=== PATIENT | female | born 1990 | race Two or more races ===

== ENCOUNTER 2017-05-17 13:42 | Emergency (ER) | payer OTHER ==
[~2017-05-17] VITALS: Ht 162.6 cm; Wt 63.5 kg
[~2017-05-17 13:42] MED LIST: IBUPROFEN600 MG ORAL; NKM; PREDNISONE20 MG ORAL; UNOBMED; ZANTAC150 MG ORAL; [UNRECOGNIZED DRUG - OTHER]
[2017-05-17] MEDS ORDERED: NKM (14:21)
[2017-05-17] MEDS ORDERED: Ketorolac 30mg Inj IV ONE (14:30)
[2017-05-17] MEDS ORDERED: Metoclopramide 10mg/2ml Inj IVP ONE (14:30)
[2017-05-17] MEDS ORDERED: DiphenhydrAMINE 50mg/ml Inj IVP ONE (14:30)
[2017-05-17 15:22] VITALS: BP 132/86
[2017-05-17 15:41] LABS: BASOPHILS % (AUTO) 0.6 % (0.0-2.0); EOSINOPHILS % (AUTO) 0.5 % (0.0-3.0); LYMPHOCYTES % (AUTO) 32.8 % (20.0-45.0); MEAN CORPUSCULAR HEMOGLOBIN 31.2 PG (27.0-31.0); MEAN CORPUSCULAR HGB CONC 33.8 G/DL (32.0-36.0); MEAN CORPUSCULAR VOLUME 92 FL (80-99); MEAN PLATELET VOLUME 6.9 FL (6.5-10.1); MONOCYTES % (AUTO) 5.3 % (1.0-10.0); NEUTROPHILS % (AUTO) 60.9 % (45.0-75.0); PLATELET COUNT 355 K/UL (150-450); RED BLOOD COUNT 4.73 M/UL (4.20-5.40); WHITE BLOOD COUNT 12.2 K/UL (4.8-10.8)
[2017-05-17 15:52] LABS: APPEARANCE,URINE CLEAR; KETONES,URINE NEGATIVE (NEGATIVE); LEUKOCYTE ESTERASE ,URINE 1+ (NEGATIVE); NITRITE,URINE NEGATIVE (NEGATIVE); PH,URINE 6 (4.5-8.0); PROTEIN,URINE NEGATIVE (NEGATIVE); UROBILINOGEN,URINE NORMAL MG/DL (0.0-1.0)
[2017-05-17 15:57] LABS: ALANINE AMINOTRANSFERASE 17 U/L (3-33); ALBUMIN/GLOBULIN RATIO 1.6 (1.0-2.7); ANION GAP 13 (5-15); ASPARTATE AMINO TRANSFERASE 20 U/L (5-40); CALCIUM 9.4 mg/dL (8.6-10.2); CARBON DIOXIDE 28 mEQ/L (20-30); CHLORIDE 98 mEQ/L (98-107); CREATININE 0.6 mg/dL (0.5-0.9); GLOMERULAR FILTRATION RATE > 60 mL/min (>60); HEMOLYSIS 10; POTASSIUM 3.7 mEQ/L (3.4-4.9); SODIUM 139 mEQ/L (135-145); TOTAL PROTEIN 7.9 g/dL (6.6-8.7)
[2017-05-17 16:05] LABS: RBC,URINE 0-2 /HPF (0 - 2); SQUAMOUS EPITHELIAL CELL,UR FEW /LPF (NONE/OCC)
[2017-05-17 16:06] LABS: BACTERIA,URINE FEW /HPF
[2017-05-17] MEDS ORDERED: FIORICET1 EA ORAL (16:14)
[2017-05-17 16:20] VITALS: BP 132/86
--- NOTE | 2017-05-17 21:48 | Emergency Room Report ---
History of Present Illness General Chief Complaint: Headache Source: Patient Present Illness HPI 26-year-old female presents ED complaining of headache x2 weeks patient notes pain across her for head, throbbing, 9/10, nonradiating. Notes photophobia, denies blurry vision. Denies nausea or vomiting. Denies recent trauma. States she has taken [id number] medications without relief. Denies neck stiffness or fevers or chills. No other aggravating relieving factors. Denies any other associated symptoms Allergies: Coded Allergies: No Known Allergies (Unverified , 07/23/12) Patient History Past Medical History: none Past Surgical History: none Pertinent Family History: none Social History: Denies: alcohol use, drug use, smoking Last Menstrual Period: 2 weeks ago Now: No Immunizations: UTD Reviewed Nursing Documentation: PMH: Agreed, PSxH: Agreed Nursing Documentation-PMH Past Medical History: No Stated History Review of Systems All Other Systems: negative except mentioned in HPI Physical Exam Vital Signs Date Time Temp Pulse Resp B/P Pulse Ox O2 Delivery O2 Flow Rate FiO2 05/17/17 14:17 98.4 72 16 132/86 99 Room Air Sp02 EP Interpretation: reviewed, normal General Appearance: no apparent distress, alert, GCS 15, non-toxic Head: normocephalic, atraumatic Eyes: bilateral eye PERRL, bilateral eye normal inspection ENT: hearing grossly normal, normal pharynx, no angioedema, normal voice Neck: full range of motion, supple, no meningismus, supple/symm/no masses Respiratory: chest non-tender, lungs clear, normal breath sounds, speaking full sentences Cardiovascular #1: regular rate, rhythm, no edema Cardiovascular #2: 2+ carotid (R), 2+ carotid (L), 2+ radial (R), 2+ radial (L) , 2+ dorsalis pedis (R), 2+ dorsalis pedis (L) Gastrointestinal: normal bowel sounds, non tender, soft, non-distended, no guarding, no rebound Rectal: deferred Genitourinary: normal inspection, no CVA tenderness Musculoskeletal: back normal, gait/station normal, normal range of motion, non- tender Neurologic: alert, oriented x3, responsive, motor strength/tone normal, sensory intact, speech normal Psychiatric: judgement/insight normal, memory normal, mood/affect normal, no suicidal/homicidal ideation Reflexes: 3+ bicep (R), 3+ bicep (L), 3+ tricep (R), 3+ tricep (L), 3+ knee (R) , 3+ knee (L) Skin: normal color, no rash, warm/dry, well hydrated Lymphatic: no adenopathy Medical Decision Making Diagnostic Impression: Primary Impression: Headache Qualified Codes: R51 - Headache ER Course Hospital Course 26-year-old female presents to ED complaining of headaches, throbbing in nature x2 weeks Differential diagnoses include: tension headache, migraine, dehydration, intracranial bleed Clinical course Patient placed on stretcher. After initial history and physical I ordered labs , IV fluids, Reglan, Toradol and Benadryl. Labs reviewed- electrolytes okay, minimal leukocytosis, hemoglobin/hematocrit stable Upon reassessment patient states pain has improved. Patient feels better wishes to go home. Given the lack of fever, nuchal rigidity or neurological findings my suspicion for intracranial pathology is low patient be safely discharged to home. i. I feel this is a highly complex case requiring extensive working including EKG/Rhythm strip, Xray/CT/US, Blood/urine lab work, repeat exams while in ED, and administration of strong opiates/narcotics for pain control, admission to hospital or close patient follow up. Diagnosis - headache stable and discharged to home with Rx Fioricet. f/up with PMD. return to ED if symptoms recur/worsen. Labs Test 05/17/17 15:20 White Blood Count 12.2 K/UL (4.8-10.8) Red Blood Count 4.73 M/UL (4.20-5.40) Hemoglobin 14.8 G/DL (12.0-16.0) Hematocrit 43.7 % (37.0-47.0) Mean Corpuscular Volume 92 FL (80-99) Mean Corpuscular Hemoglobin 31.2 PG (27.0-31.0) Mean Corpuscular Hemoglobin Concent 33.8 G/DL (32.0-36.0) Red Cell Distribution Width 11.0 % (11.6-14.8) Platelet Count 355 K/UL (150-450) Mean Platelet Volume 6.9 FL (6.5-10.1) Neutrophils (%) (Auto) 60.9 % (45.0-75.0) Lymphocytes (%) (Auto) 32.8 % (20.0-45.0) Monocytes (%) (Auto) 5.3 % (1.0-10.0) Eosinophils (%) (Auto) 0.5 % (0.0-3.0) Basophils (%) (Auto) 0.6 % (0.0-2.0) Urine Color Pale yellow Urine Appearance Clear Urine pH 6 (4.5-8.0) Urine Specific [place] 1.015 (1.005-1.035) Urine Protein Negative (NEGATIVE) Urine Glucose (UA) Negative (NEGATIVE) Urine Ketones Negative (NEGATIVE) Urine Occult Blood Negative (NEGATIVE) Urine Nitrite Negative (NEGATIVE) Urine Bilirubin Negative (NEGATIVE) Urine Urobilinogen Normal MG/DL (0.0-1.0) Urine Leukocyte Esterase 1+ (NEGATIVE) Urine RBC 0-2 /HPF (0 - 2) Urine WBC 2-4 /HPF (0 - 2) Urine Squamous Epithelial Cells Few /LPF (NONE/OCC) Urine Bacteria Few /HPF (NONE) Urine HCG, Qualitative Negative Sodium Level 139 mEQ/L (135-145) Potassium Level 3.7 mEQ/L (3.4-4.9) Chloride Level 98 mEQ/L (98-107) Carbon Dioxide Level 28 mEQ/L (20-30) Anion Gap 13 (5-15) Blood Urea Nitrogen 7 mg/dL (7-23) Creatinine 0.6 mg/dL (0.5-0.9) Estimat Glomerular Filtration Rate > 60 mL/min (>60) Glucose Level 97 mg/dL (74-106) Calcium Level 9.4 mg/dL (8.6-10.2) Total Bilirubin 0.5 mg/dL (0.0-1.2) Aspartate Amino Transf (AST/SGOT) 20 U/L (5-40) Alanine Aminotransferase (ALT/SGPT) 17 U/L (3-33) Alkaline Phosphatase 72 U/L (35-104) Total Protein 7.9 g/dL (6.6-8.7) Albumin 4.9 g/dL (3.5-5.2) Globulin 3.0 g/dL Albumin/Globulin Ratio 1.6 (1.0-2.7) Last Vital Signs Date Time Temp Pulse Resp B/P Pulse Ox O2 Delivery O2 Flow Rate FiO2 05/17/17 16:20 98.4 68 16 132/86 99 Room Air Status: improved Disposition: HOME, SELF-CARE Condition: Stable Scripts Acetamin/Butalbital/Caffeine* (FIORICET*) 1 Ea Tab 1 TAB ORAL Q6H, #20 TAB 0 Refills Prov: PRANEETH FREEMAN M.D. 05/17/17 Referrals: [facility]ERR[facility] (PCP) Patient Instructions: Migraine Headache PRANEETH FREEMAN M.D. May 17, 2017 21:48
== END 2017-05-17 16:21 | disposition home or self-care (01) ==
LOC: EMR 14:46
DX: R51 Headache (principal)
CPT/HCPCS: 36415; 80053; 81003; 81025; 85025; 96374; 96375; 99284; J1200; J1885; J2765; J7040

== ENCOUNTER 2018-01-09 10:33 | Emergency (ER) | payer OTHER ==
[~2018-01-09] VITALS: Ht 162.6 cm; Wt 71.7 kg
[~2018-01-09 10:33] MED LIST changes: +FIORICET1 EA ORAL
[2018-01-09] MEDS ORDERED: Acetaminophen 500mg (ES) tab ORAL ONE (11:45)
[2018-01-09 12:25] LABS: APPEARANCE,URINE CLEAR; BILIRUBIN, URINE NEGATIVE (NEGATIVE); GLUCOSE, URINE (UA) 2+ (NEGATIVE); KETONES,URINE 1+ (NEGATIVE); LEUKOCYTE ESTERASE ,URINE 2+ (NEGATIVE); NITRITE,URINE NEGATIVE (NEGATIVE); PH,URINE 7 (4.5-8.0); PROTEIN,URINE NEGATIVE (NEGATIVE); UROBILINOGEN,URINE NORMAL MG/DL (0.0-1.0)
[2018-01-09 12:38] LABS: COLOR,URINE YELLOW
--- NOTE | 2018-01-09 15:26 | Diagnostic Imaging Report ---
Indication: Neck and back pain, fell down stairs 2 days ago, positive test Technique: Transabdominal and transvaginal images Comparison: 11/13/2012 Findings: Uterus measures 9.5 cm length by 5.2 cm AP. Within the endometrium, there is a gestational sac. This demonstrates a pole with a crown-rump length of 13 mm, corresponding to an estimated gestational age of 7 weeks 4 days. There is positive heart activity, heart rate 153 bpm. A yolk sac is demonstrated. Questionable minimal linear hypoechoic focus in the endometrium could represent a tiny subchorionic hemorrhage. There are uterine fundal fibroids measuring up to 4.1 cm in diameter. These are intramural. The left ovary measures 2.8 cm in length. The right ovary measures 3.6 cm in length. No adnexal mass. No free cul-de-sac fluid. There is a questionable small cervical nabothian cyst Impression: Positive for 7 week 4 day, by crown-rump length measurements, single live intrauterine Equivocal minimal subchorionic hemorrhage Multiple uterine fibroids Negative for adnexal mass
[2018-01-09 17:41] VITALS: BP 116/75
[2018-01-09 17:42] VITALS: BP 116/75
--- NOTE | 2018-01-14 23:27 | Emergency Room Report ---
History of Present Illness General Chief Complaint: Multiple Trauma/Fall Source: Patient Present Illness HPI Patient is a 27-year-old female who presented after increased neck pain after a fall. Patient reported having moderate pain. She denied any vaginal bleeding. Patient states that she is she denies any vaginal bleeding or leakage of fluid. She reported having some nausea. Patient denied severe headache Allergies: Coded Allergies: No Known Allergies (Unverified , 07/23/12) Patient History Past Medical History: see triage record Last Menstrual Period: 11/15/17 Reviewed Nursing Documentation: PMH: Agreed, PSxH: Agreed Nursing Documentation-PMH Past Medical History: No Stated History Review of Systems All Other Systems: negative except mentioned in HPI Physical Exam Vital Signs Date Time Temp Pulse Resp B/P (MAP) Pulse Ox O2 Delivery O2 Flow Rate FiO2 01/09/18 10:47 98.4 84 16 116/75 98 Room Air 98.4 General Appearance: well appearing, no apparent distress, alert, GCS 15, non- toxic Head: normocephalic, atraumatic ENT: hearing grossly normal, normal voice Neck: full range of motion, supple Respiratory: no respiratory distress, speaking full sentences Musculoskeletal: no calf tenderness Neurologic: normal gait Psychiatric: mood/affect normal Skin: no rash Medical Decision Making Diagnostic Impression: Primary Impression: Fall Additional Impression: Intrauterine ER Course Patient presented after a fall. Differential diagnosis included was not limited to fracture, abruption pelvic ultrasound was ordered due to patient's . The patient is advised to follow up with primary care doctor in 1- 2 days. Patient is advised to return if any worsening condition or if any changes in status that are concerning. This report is dictated with [employer] cosmetics presser software which may occasionally lead to discrepancies related to use of this software. Labs Test 01/09/18 11:55 Urine Color Yellow Urine Appearance Clear Urine pH 7 (4.5-8.0) Urine Specific [place] 1.010 (1.005-1.035) Urine Protein Negative (NEGATIVE) Urine Glucose (UA) 2+ (NEGATIVE) Urine Ketones 1+ (NEGATIVE) Urine Occult Blood Negative (NEGATIVE) Urine Nitrite Negative (NEGATIVE) Urine Bilirubin Negative (NEGATIVE) Urine Urobilinogen Normal MG/DL (0.0-1.0) Urine Leukocyte Esterase 2+ (NEGATIVE) Urine RBC 0-2 /HPF (0 - 2) Urine WBC 2-4 /HPF (0 - 2) Urine Squamous Epithelial Cells Moderate /LPF (NONE/OCC) Urine Bacteria Few /HPF (NONE) Urine HCG, Qualitative Positive Last Vital Signs Date Time Temp Pulse Resp B/P (MAP) Pulse Ox O2 Delivery O2 Flow Rate FiO2 01/09/18 17:42 99.0 89 16 116/75 98 Room Air 99.0 Status: improved Disposition: HOME, SELF-CARE Condition: Stable Patient Instructions: First Trimester of Shlomo García Jan 14, 2018 23:27
== END 2018-01-09 15:10 | disposition home or self-care (01) ==
LOC: EMR 11:40
DX: O26.891 Other specified pregnancy related conditions, first trimester (principal); M54.2 Cervicalgia; W19.XXXA Unspecified fall, initial encounter; Y92.9 Unspecified place or not applicable; O34.11 Maternal care for benign tumor of corpus uteri, first trimester; D25.9 Leiomyoma of uterus, unspecified; Z3A.01 Less than 8 weeks gestation of pregnancy
CPT/HCPCS: 76801; 81003; 81025; 99284

== ENCOUNTER 2019-04-15 11:03 | Emergency (ER) | payer OTHER ==
[~2019-04-15] VITALS: Ht 162.6 cm; Wt 69.4 kg
[2019-04-15 11:10] VITALS: BP 108/70
[2019-04-15] MEDS ORDERED: PRENATAL 19 TA1 EAC1 PO (11:10)
--- NOTE | 2019-04-15 11:10 | NUR ---
ED Nurse Note: pt walked in to ER c/o vaginal bleeding started this morning with abdominal pain 2/. pt aao x4 and ambulatory. skin clean and intact. per pt, she is 8 weeks .
--- NOTE | 2019-04-15 11:21 | Emergency Room Report ---
History of Present Illness General Chief Complaint: Complications Source: Patient Present Illness HPI Patient presents with light vaginal bleeding. It was more than just spotting. There was no clot material. That happened this morning. She's had some cramping 2-3/10 has been suprapubic. She denies any dysuria or fevers. The patient last period was February 22. She's had 2 miscarriages before. She has 2 children youngest 7 months and the oldest is 6 years old. The patient had an ultrasound last Tuesday. There is nothing abnormal that was seen. She does not know her blood type. No fevers, chills, chest pain, palpitations, nausea, vomiting, diarrhea, dysuria , shortness of breath, depression, visual changes, headache. Allergies: Coded Allergies: No Known Allergies (Unverified , 07/23/12) Patient History Past Medical History: see triage record Social History: Denies: smoking, alcohol use, drug use Social History Narrative at home Now: Yes : 6 Para: 2 Reviewed Nursing Documentation: PMH: Agreed; PSxH: Agreed Nursing Documentation-PMH Past Medical History: No Stated History Review of Systems All Other Systems: negative except mentioned in HPI Physical Exam Vital Signs Date Time Temp Pulse Resp B/P (MAP) Pulse Ox O2 Delivery O2 Flow Rate FiO2 04/15/19 11:05 97.9 78 16 108/70 (83) 99 Room Air Sp02 EP Interpretation: reviewed, normal General Appearance: well appearing, no apparent distress, GCS 15 Head: normocephalic Eyes: bilateral eye normal inspection, bilateral eye PERRL ENT: moist mucus membranes Neck: supple Respiratory: lungs clear, normal breath sounds Cardiovascular #1: regular rate, rhythm Cardiovascular #2: 2+ radial (R) Gastrointestinal: normal inspection, normal bowel sounds, non tender, no mass, non-distended Genitourinary: no CVA tenderness, deferred - For ultrasound Musculoskeletal: back normal, gait/station normal, normal range of motion Neurologic: alert, oriented x3, grossly normal Psychiatric: mood/affect normal Skin: normal inspection, warm/dry Medical Decision Making Diagnostic Impression: Primary Impression: Threatened miscarriage Additional Impression: 7 weeks gestation of ER Course Patient presents with vaginal bleeding and allegedly is 8 weeks . Differential includes ectopic, threatened miscarriage, bleeding in early , UTI amongst others. The patient will be evaluated with labs including blood type and Rh. The patient will be treated with Tylenol IV hydration. Pelvic ultrasound will be performed. Labs unremarkable. Pelvic ultrasound with 7-week IUP with heartbeat. Blood type O+. Patient reports no more bleeding. The pain is improved. Discussed findings with patient. Also discussed the need to follow-up with OB/ [employer]. Patient stable for outpatient observation and treatment. Laboratory Tests Test 04/15/19 11:45 White Blood Count 12.3 K/UL (4.8-10.8) H Red Blood Count 4.94 M/UL (4.20-5.40) Hemoglobin 14.5 G/DL (12.0-16.0) Hematocrit 42.1 % (37.0-47.0) Mean Corpuscular Volume 85 FL (80-99) Mean Corpuscular Hemoglobin 29.3 PG (27.0-31.0) Mean Corpuscular Hemoglobin Concent 34.5 G/DL (32.0-36.0) Red Cell Distribution Width 11.0 % (11.6-14.8) L Platelet Count 286 K/UL (150-450) Mean Platelet Volume 7.0 FL (6.5-10.1) Neutrophils (%) (Auto) 74.5 % (45.0-75.0) Lymphocytes (%) (Auto) 19.6 % (20.0-45.0) L Monocytes (%) (Auto) 5.2 % (1.0-10.0) Eosinophils (%) (Auto) 0.3 % (0.0-3.0) Basophils (%) (Auto) 0.4 % (0.0-2.0) Prothrombin Time 10.0 SEC (9.30-11.50) Prothrombin Time INR 0.9 (0.9-1.1) PTT 28 SEC (23-33) Urine Color Yellow Urine Appearance Clear Urine pH 6 (4.5-8.0) Urine Specific [place] 1.020 (1.005-1.035) Urine Protein Negative (NEGATIVE) Urine Glucose (UA) Negative (NEGATIVE) Urine Ketones 3+ (NEGATIVE) H Urine Blood 1+ (NEGATIVE) H Urine Nitrite Negative (NEGATIVE) Urine Bilirubin Negative (NEGATIVE) Urine Urobilinogen Normal MG/DL (0.0-1.0) Urine Leukocyte Esterase 1+ (NEGATIVE) H Urine RBC 0-2 /HPF (0 - 2) Urine WBC 0-2 /HPF (0 - 2) Urine Squamous Epithelial Cells Few /LPF (NONE/OCC) Urine Bacteria Few /HPF (NONE) Sodium Level 136 MMOL/L (136-145) Potassium Level 3.7 MMOL/L (3.5-5.1) Chloride Level 101 MMOL/L (98-107) Carbon Dioxide Level 26 MMOL/L (21-32) Anion Gap 9 mmol/L (5-15) Blood Urea Nitrogen 6 mg/dL (7-18) L Creatinine 0.5 MG/DL (0.55-1.30) L Estimate Glomerular Filtration Rate > 60 mL/min (>60) Glucose Level 105 MG/DL (74-106) Calcium Level 9.1 MG/DL (8.5-10.1) Total Bilirubin 0.3 MG/DL (0.2-1.0) Aspartate Amino Transferase (AST) 15 U/L (15-37) Alanine Aminotransferase (ALT) 18 U/L (12-78) Alkaline Phosphatase 81 U/L (46-116) Total Protein 7.9 G/DL (6.4-8.2) Albumin 3.8 G/DL (3.4-5.0) Globulin 4.1 g/dL Albumin/Globulin Ratio 0.9 (1.0-2.7) L Lipase 140 U/L (73-393) Human Chorionic Gonadotropin, Quant 84716 mIU/mL (1-6) H CT/MRI/US Diagnostic Results CT/MRI/US Diagnostic Results : Imaging Test Ordered: pelvic u/s Impression 7 week 6 days, + heart beat Last Vital Signs Date Time Temp Pulse Resp B/P (MAP) Pulse Ox O2 Delivery O2 Flow Rate FiO2 04/15/19 15:20 98.3 81 16 126/74 99 Room Air Status: improved Disposition: HOME, SELF-CARE Condition: Improved Scripts Promethazine Hcl* (PHENERGAN*) 25 Mg Tablet 25 MG ORAL Q8HR, #10 TAB 0 Refills Prov: Mynor Wagner MD 04/15/19 Mynor Wagner MD Apr 15, 2019 11:21
--- NOTE | 2019-04-15 11:30 | NUR ---
quick service technician was notified to call ob tech
[2019-04-15 12:03] LABS: APPEARANCE,URINE CLEAR; BILIRUBIN, URINE NEGATIVE (NEGATIVE); GLUCOSE, URINE (UA) NEGATIVE (NEGATIVE); KETONES,URINE 3+ (NEGATIVE); LEUKOCYTE ESTERASE ,URINE 1+ (NEGATIVE); NITRITE,URINE NEGATIVE (NEGATIVE); PH,URINE 6 (4.5-8.0); PROTEIN,URINE NEGATIVE (NEGATIVE); UROBILINOGEN,URINE NORMAL MG/DL (0.0-1.0)
[2019-04-15 12:05] LABS: BASOPHILS % (AUTO) 0.4 % (0.0-2.0); EOSINOPHILS % (AUTO) 0.3 % (0.0-3.0); HEMATOCRIT 42.1 % (37.0-47.0); HEMOGLOBIN 14.5 G/DL (12.0-16.0); LYMPHOCYTES % (AUTO) 19.6 % (20.0-45.0); MEAN CORPUSCULAR VOLUME 85 FL (80-99); MONOCYTES % (AUTO) 5.2 % (1.0-10.0); NEUTROPHILS % (AUTO) 74.5 % (45.0-75.0); PLATELET COUNT 286 K/UL (150-450); RED BLOOD COUNT 4.94 M/UL (4.20-5.40); WHITE BLOOD COUNT 12.3 K/UL (4.8-10.8)
[2019-04-15 12:08] LABS: COLOR,URINE YELLOW
[2019-04-15 12:09] LABS: INR 0.9 (0.9-1.1)
[2019-04-15 12:14] LABS: ANION GAP 9 mmol/L (5-15); BLOOD UREA NITROGEN 6 mg/dL (7-18); CALCIUM 9.1 MG/DL (8.5-10.1); CARBON DIOXIDE 26 MMOL/L (21-32); CHLORIDE 101 MMOL/L (98-107); CREATININE 0.5 MG/DL (0.55-1.30); POTASSIUM 3.7 MMOL/L (3.5-5.1); SODIUM 136 MMOL/L (136-145)
[2019-04-15 12:20] LABS: ALANINE AMINOTRANSFERASE 18 U/L (12-78); ALBUMIN 3.8 G/DL (3.4-5.0); ALBUMIN/GLOBULIN RATIO 0.9 (1.0-2.7); ALKALINE PHOSPHATASE 81 U/L (46-116); ASPARTATE AMINO TRANSFERASE 15 U/L (15-37); BILIRUBIN,TOTAL 0.3 MG/DL (0.2-1.0)
--- NOTE | 2019-04-15 12:46 | NUR ---
called radiology again to find out where is the client technical specialist
[2019-04-15 13:01] VITALS: BP 118/64
--- NOTE | 2019-04-15 13:23 | NUR ---
per rupa from radiology hvac tech called states the tech will be late
--- NOTE | 2019-04-15 14:32 | NUR ---
TO ULTRASOUND VIA [facility]
--- NOTE | 2019-04-15 14:50 | NUR ---
ED Nurse Note: US technitian arrived.
[2019-04-15] MEDS ORDERED: PHENERGAN25 M1 ORAL (15:12)
[2019-04-15 15:20] VITALS: BP 126/74
--- NOTE | 2019-04-15 15:24 | NUR ---
ER DISCHARGE NOTE: Patient is cleared to be discharged per ERMD after US, pt is aox4, on room air, with stable vital signs. pt was given dc and prescription instructions, pt was able to verbalize understanding, pt id band and iv site removed without complications. pt is able to ambulate with steady gait. pt took all belongings.
--- NOTE | 2019-04-15 18:19 | Diagnostic Imaging Report ---
EXAM: US OB first trimester CLINICAL HISTORY: vaginal bleeding TECHNIQUE: Real-time transabdominal ultrasound of the gravid uterus and pelvis with image documentation. COMPARISON: 01/09/18 OB ultrasound FINDINGS: Uterus/cervix: Unremarkable. Normal endometrial stripe thickness. No myometrial mass. Right ovary: Unremarkable. No mass. Normal blood flow. Left ovary: Unremarkable. No mass. Normal blood flow. Free fluid: No subchronic hemorrhage is seen. No significant pelvic free fluid. No adnexal masses seen. Bladder: Unremarkable as visualized. Wall is normal thickness for degree of distention. Other findings: Single live intrauterine gestation with a crown-rump length of 1.5 cm, corresponding to a gestational age of 7 weeks and 6 days is noted. cardiac motion is documented on a cine loop but M- mode Doppler quantification of heart rate is not documented currently. A yolk sac is identified. Within the gestational cavity is a curvilinear echogenic structure suggestive of an amniotic band. IMPRESSION: Single live intrauterine gestation with a sonographic gestational age of 7 weeks and 6 days. There is an intrauterine curvilinear echogenic structure suggestive of a possible amniotic band. Recommend reevaluation on follow-up..
== END 2019-04-15 15:20 | disposition home or self-care (01) ==
LOC: EMR 11:32
DX: O20.0 Threatened abortion (principal); Z3A.01 Less than 8 weeks gestation of pregnancy
CPT/HCPCS: 36415; 76856; 80053; 81003; 83690; 84702; 85025; 85610; 85730; 86900; 86901; 96360; 99284

== ENCOUNTER 2019-12-20 15:54 | Emergency (ER) | payer MEDICAID ==
[~2019-12-20] VITALS: Ht 162.6 cm; Wt 70.3 kg
[~2019-12-20 15:54] MED LIST changes: +PHENERGAN25 M1 ORAL; +PRENATAL 19 TA1 EAC1 PO
[2019-12-20 16:13] VITALS: BP 113/79
--- NOTE | 2019-12-20 16:27 | NUR ---
ED Nurse Note: Pt. aaox4. ambulatory pt sated she has pain in the left breast x 3days ; reports no redness, swelling or nipple discharge, but patient had fever 102F and chills. Reports no flu-like symptoms. +breasfeeding; delivered 4 weeks ago.
--- NOTE | 2019-12-20 16:47 | Emergency Room Report ---
History of Present Illness General Chief Complaint: Pain Source: Patient Present Illness HPI 29-year-old female presents to the emergency department complaining of progressive 10/10 in severity pain, tenderness and pain with breast-feeding in the left breast progressive x2 days. Patient also reports having a fever on Tuesday of 102. Patient states she has been taking IBU once a day. Pt. denies MERIDA, CP, SOB, Dizziness. She denies nipple d/c. She denies palpable masses. Pt. reports she has appt with her OBGYN on Tuesday. Allergies: Coded Allergies: No Known Allergies (Unverified , 07/23/12) Patient History Past Medical History: see triage record Past Surgical History: none Pertinent Family History: none Now: No Para: 3 Reviewed Nursing Documentation: PMH: Agreed; PSxH: Agreed Nursing Documentation-PMH Past Medical History: No Stated History Review of Systems All Other Systems: negative except mentioned in HPI Physical Exam Vital Signs Date Time Temp Pulse Resp B/P (MAP) Pulse Ox O2 Delivery O2 Flow Rate FiO2 12/20/19 16:13 98.8 87 18 113/79 97 Room Air Sp02 EP Interpretation: reviewed, normal General Appearance: no apparent distress, alert, GCS 15, non-toxic Head: normocephalic, atraumatic Eyes: bilateral eye normal inspection, bilateral eye PERRL ENT: hearing grossly normal, normal voice Neck: full range of motion Respiratory: lungs clear, normal breath sounds, speaking full sentences, other - TTP to the bottom of the left breast, erythema, and warmth noted. no nipple d/ c. no palpable abscess. Cardiovascular #1: regular rate, rhythm Musculoskeletal: back normal, normal range of motion, gait/station normal Neurologic: alert, motor strength/tone normal, oriented x3, sensory intact, responsive, speech normal Psychiatric: judgement/insight normal Skin: other - TTP to the bottom of the left breast, erythema, and warmth noted. no nipple d/c. no palpable abscess. Medical Decision Making PA Attestation Dr. Almendarez Is my supervising Physician whom patient management has been discussed with. Diagnostic Impression: Primary Impression: Mastitis ER Course 29-year-old female presents to the emergency department complaining of progressive 10/10 in severity pain, tenderness and pain with breast-feeding in the left breast progressive x2 days. Patient also reports having a fever on Tuesday of 102. Patient states she has been taking IBU once a day. Pt. denies MERIDA, CP, SOB, Dizziness. She denies nipple d/c. She denies palpable masses. Pt. reports she has appt with her OBGYN on Tuesday. Ddx considered but are not limited to cellulitis, abscess, mastitis, shingles, malignancy just to name a few. Vital signs: are WNL, pt. is afebrile H&PE are most consistent with mastitis secondary to breast-feeding no evidence of systemic infection at this time ORDERS: none required at this time, the diagnosis is clinical ED INTERVENTIONS: None required at this time. DISCHARGE: At this time pt. is stable for d/c to home. Will provide printed patient care instructions, and any necessary prescriptions. Care plan and follow up instructions have been discussed with the patient prior to discharge. Last Vital Signs Date Time Temp Pulse Resp B/P (MAP) Pulse Ox O2 Delivery O2 Flow Rate FiO2 12/20/19 16:13 98.8 82 18 113/79 (90) 97 Room Air Status: improved Disposition: HOME, SELF-CARE Condition: Stable Scripts Ibuprofen* (MOTRIN*) 600 Mg Tablet 600 MG ORAL THREE TIMES A DAY, #30 TAB 0 Refills Prov: Suzan Weir 12/20/19 Cephalexin* (KEFLEX*) 500 Mg Capsule 500 MG ORAL EVERY 12 HOURS for 7 Days, #14 CAP 0 Refills Prov: Suzan Weir 12/20/19 Patient Instructions: and Mastitis, Mastitis, [id number] Additional Instructions: Take medications as directed. Follow up with a Primary Care Provider or OBGYN in 3-5 days, even if your symptoms have resolved. Return sooner to ED if new symptoms occur, or current symptoms become worse. - Please note that this Emergency Department Report was dictated using [employer] wood stair builder technology software, occasionally this can lead to erroneous entry secondary to interpretation by the dictation equipment. Suzan Weir Dec 20, 2019 16:47
[2019-12-20] MEDS ORDERED: IBUPROFEN600 MG ORAL ×3 (16:51→16:59)
[2019-12-20] MEDS ORDERED: CEPHALEXIN500 MG ORAL ×3 (16:51→16:59)
[2019-12-20 16:55] VITALS: BP 124/75
--- NOTE | 2019-12-20 16:55 | NUR ---
ER DISCHARGE NOTE: Patient is cleared to be discharged per PA, pt is aox4, on room air, with stable vital signs. pt was given dc and prescription instructions, pt was able to verbalize understanding, pt id band removed. pt is able to ambulate with steady gait. pt took all belongings.
== END 2019-12-20 16:55 | disposition home or self-care (01) ==
LOC: EMR 16:55
DX: N61.0 Mastitis without abscess (principal)
CPT/HCPCS: 99282